=== PATIENT | male | born 1955 | race Caucasian/White ===

== ENCOUNTER → 2023-11-25 11:22 | Outpatient (REF) | payer MEDICARE, OTHER, SELFPAY ==
[2023-11-25 12:46] LABS: Vitamin D, 25-OH*** 35.9 ng/mL (30-80)
== END ==
LOC: RAD 11:22
PROVIDERS: ATTENDING PHYSICIAN Family Medicine
DX: D35.2 Benign neoplasm of pituitary gland (principal); E55.9 Vitamin D deficiency, unspecified
CPT/HCPCS: 36415; 82306

== ENCOUNTER → 2024-08-30 10:32 | Outpatient (REF) | payer MEDICARE, OTHER, SELFPAY ==
[2024-09-01 04:25] LABS: IGF-1 Z Score Calculation 0.9; Insulin-like Growth Factor I 160 ng/mL (34-240)
== END ==
LOC: REG 10:32
PROVIDERS: ATTENDING PHYSICIAN Neurological Surgery; FAMILY PHYSICIAN Family Medicine
DX: E22.0 Acromegaly and pituitary gigantism (principal)
CPT/HCPCS: 36415; 84305

== ENCOUNTER → 2025-02-20 09:44 | Outpatient (REF) | payer MEDICARE, OTHER, SELFPAY ==
[2025-02-20 11:24] LABS: ALT (SGPT) 21 U/L (0-50); AST (SGOT) 19 U/L (17-59); Albumin 4.5 g/dl (3.5-5.0); Alkaline Phosphatase 51 U/L (38-126); Blood Urea Nitrogen 17 mg/dl (9-20); Calcium 9.9 mg/dl (8.4-10.2); Carbon Dioxide 29 mmol/L (22-30); Chloride 102 mmol/L (98-107); Glucose 113 mg/dl (70-99); Potassium 4.5 mmol/L (3.5-5.1); Sodium 135 mmol/L (135-145); Total Protein 7.2 g/dl (6.3-8.2); eGFR > 60.00
[2025-02-20 11:34] LABS: Vitamin D, 25-OH*** 54.0 ng/mL (30-80)
[2025-02-20 12:32] LABS: Glycohemoglobin (HgbA1c) 6.3 % (4.0-5.9)
[2025-02-22 06:54] LABS: IGF-1 Z Score Calculation 1.0
== END ==
LOC: REG 09:44
PROVIDERS: ATTENDING PHYSICIAN Family Medicine
DX: E11.9 Type 2 diabetes mellitus without complications (principal); E29.1 Testicular hypofunction; E55.9 Vitamin D deficiency, unspecified; E78.5 Hyperlipidemia, unspecified; I10 Essential (primary) hypertension; Z82.49 Family history of ischemic heart disease and other diseases of the circulatory system
CPT/HCPCS: 36415; 80053; 82306; 83003; 83036; 84270; 84305; 84402; 84403